=== PATIENT | female | born 1985 | race Caucasian/White ===

== ENCOUNTER 2017-10-27 08:52 | Emergency (ER) | payer BC ==
[2017-10-27] MEDS ORDERED: Sodium Chloride 0.9% 10 ML Syringe FLUSH PRN (09:38)
--- NOTE | 2017-10-27 09:39 | EDM.PDOC ---
ED HPI GENERAL MEDICAL PROBLEM - General Chief Complaint: Diabetic Complaint Stated Complaint: HBS CANT GET IT TO GO DOWN Time Seen by Provider: 10/27/17 09:35 Source of Information: Reports: Patient, RN Notes Reviewed - History of Present Illness INITIAL COMMENTS - FREE TEXT/NARRATIVE: 32-year-old female comes in with elevated blood sugar this morning. She states she apparently started running high during the night. She was aware that she was at high, upper 200s at around 4:00 this morning. She states that with her pump she has received about 10 extra units of insulin this morning. her readings are still running high at home. She also did eat a pumpkin bar about an hour ago because she felt she needed to get something "into her stomach". She states she has had this insulin pump for quite a while and has been diabetic for many years. No recent nausea or vomiting. States his sugars have been running fairly well recently until early this morning. No voiding symptomatology. No recent fever or chills. Chest Pain Score (Numeric/FACES): 5 - Related Data Allergies Allergy/AdvReac Type Severity Reaction Status Date / Time No Known Allergies Allergy Verified 10/27/17 09:02 Home Meds: Home Meds Amphetamine/Dextroamphetamine [Adderall XR] 15 mg PO DAILY 05/11/17 [History] Aspirin 81 mg PO DAILY 05/11/17 [History] Glucagon,Human Recombinant [Glucagen] 1 mg SUBCUT ASDIRECTED PRN 05/11/17 [ History] Insulin Aspart [NovoLOG] 90 units SUBCUT DAILY 05/11/17 [History] Losartan [Cozaar] 25 mg PO DAILY 05/11/17 [History] Rosuvastatin [Crestor] 5 mg PO DAILY 05/11/17 [History] Subcutaneous Insulin Pump [Minimed 670G] 1 device SUBCUT DAILY 05/11/17 [History ] Past Medical History Cardiovascular History: Reports: Hypertension Neurological History: Reports: Neuropathy, Diabetic Psychiatric History: Reports: Anxiety, Depression Endocrine/Metabolic History: Reports: Diabetes, Type I - Infectious Disease History Infectious Disease History: Reports: Chicken Pox Social & Family History - Tobacco Use Smoking Status *Q: Never Smoker - Caffeine Use Caffeine Use: Reports: Soda - Recreational Drug Use Recreational Drug Use: No ED ROS GENERAL - Review of Systems Review Of Systems: See Below Constitutional: Reports: No Symptoms HEENT: Denies: Vision Change Respiratory: Denies: Shortness of Breath Cardiovascular: Denies: Chest Pain GI/Abdominal: Denies: Abdominal Pain, Nausea, Vomiting Musculoskeletal: Denies: Neck Pain, Shoulder Pain Skin: Denies: Rash Neurological: Reports: Dizziness (Mild). Denies: Numbness, Tingling ED EXAM GENERAL NO PERIP PULSE - Physical Exam Exam: See Below General Appearance: Alert, No Apparent Distress Throat/Mouth: Normal Oropharynx, Other Head: No: Facial Swelling (Oral mucosa mildly dry) Neck: Supple Respiratory/Chest: No Respiratory Distress, Lungs Clear, Normal Breath Sounds Cardiovascular: Regular Rate, Rhythm GI/Abdominal: Soft Back Exam: No: CVA Tenderness (L), CVA Tenderness (R) Extremities: Normal Inspection. No: Pedal Edema, Leg Pain Neurological: Alert, Oriented, No Motor/Sensory Deficits Skin Exam: Warm, Dry, Normal Color Course - Vital Signs Last Recorded V/S: Last Vital Signs Temp 97.9 F 10/27/17 08:58 Pulse 117 H 10/27/17 08:58 Resp 15 10/27/17 08:58 BP 140/92 H 10/27/17 08:58 Pulse Ox 99 10/27/17 08:58 - Orders/Labs/Meds Orders: Active Orders 24 hr Category Date Time Status Peripheral IV Care [RC] . DIRECTED Care 10/27/17 09:39 Active Peripheral IV Insertion Adult [OM.PC] Stat Oth 10/27/17 09:38 Ordered Labs: Laboratory Tests 10/27/17 10/27/17 10/27/17 Range/Units 09:00 09:20 09:20 WBC 7.56 (3.98-10.04) K/mm3 RBC 4.29 (3.98-5.22) M/mm3 Hgb 12.8 (11.2-15.7) gm/L Hct 36.6 (34.1-44.9) % MCV 85.3 (79.4-94.8) fl MCH 29.8 (25.6-32.2) pg MCHC 35.0 (32.2-35.5) g/dl RDW Std Deviation 36.2 L (36.4-46.3) fL Plt Count 214 (182-369) K/mm3 MPV 10.8 (9.4-12.3) fl Neut % (Auto) 74.9 H (34.0-71.1) % Lymph % (Auto) 18.1 L (19.3-51.7) % [place] % (Auto) 5.8 (4.7-12.5) % Eos % (Auto) 0.3 L (0.7-5.8) Baso % (Auto) 0.5 (0.1-1.2) % Neut # (Auto) 5.66 (1.56-6.13) K/mm3 Lymph # (Auto) 1.37 (1.18-3.74) K/mm3 [place] # (Auto) 0.44 H (0.24-0.36) K/mm3 Eos # (Auto) 0.02 L (0.04-0.36) K/mm3 Baso # (Auto) 0.04 (0.01-0.08) K/mm3 Sodium 130 L (136-145) mEq/L Potassium 3.9 (3.5-5.1) mEq/L Chloride 99 (98-107) mEq/L Carbon Dioxide 16 L (21-32) mEq/L Anion Gap 18.9 H (5-15) BUN 20 H (7-18) mg/dL Creatinine 1.0 (0.55-1.02) mg/dL Est Cr Clr Drug Dosing 85.97 mL/min Estimated GFR (MDRD) > 60 (>60) mL/min BUN/Creatinine Ratio 20.0 H (14-18) Glucose 382 H (74-106) mg/dL POC Glucose 367 H (70-105) mg/dL Calcium 9.0 (8.5-10.1) mg/dL Total Bilirubin 1.2 H (0.2-1.0) mg/dL AST 23 (15-37) U/L ALT 40 (14-59) U/L Alkaline Phosphatase 73 (46-116) U/L Total Protein 7.2 (6.4-8.2) g/dl Albumin 4.0 (3.4-5.0) g/dl Globulin 3.2 gm/dL Albumin/Globulin Ratio 1.3 (1-2) Meds: Medications Discontinued Medications Generic Name Dose Route Start Last Admin Trade Name Freq PRN Reason Stop Dose Admin Sodium Chloride 1,000 mls @ 999 mls/hr 10/27/17 09:45 10/27/17 10:06 Normal Saline IV 999 mls/hr ONETIME CLARY Administration Insulin Human Regular 3 unit 10/27/17 09:46 10/27/17 10:05 Humulin R IVPUSH 10/27/17 09:47 3 unit ONETIME ONE Administration Protocol Sodium Chloride 10 ml 10/27/17 09:38 10/27/17 10:06 Saline Flush FLUSH 10 ml ASDIRECTED PRN Administration Keep Vein Open - Re-Assessments/Exams Free Text/Narrative Re-Assessment/Exam: 10/27/17 15:06 Initial blood sugar was 379. We did give 3 units of insulin IV, and 1 L normal saline bolus. She does feel much better, blood sugars come down to 38. Did offer giving another liter of fluid as her labs did show moderate dehydration but she feels that she can go home continue to manage her blood sugar and continue to rehydrate. Discharge instructions as documented. Departure - Departure Time of Disposition: 12:18 Disposition: Home, Self-Care 01 Condition: Fair Clinical Impression: Hyperglycemia, Dehydration - Discharge Information Instructions: Hyperglycemia, Dehydration, Adult, [id number] Referrals: Peter Billingsley MD [Primary Care Provider] - Forms: ED Department Discharge, ED Return to Work/School Form Additional Instructions: Continued to drink plenty of water to rehydrate and maintain hydration, you to work with your insulin pump to help get sure blood sugar back to normal, her flow of your I will hydrate intake today, rest, off work the remainder of today , return to work tomorrow as tolerated, take as needed, return to ED as needed if symptoms worsening in any way. - My Orders Last 24 Hours: My Active Orders 10/27/17 09:38 Peripheral IV Insertion Adult [OM.PC] Stat 10/27/17 09:39 Peripheral IV Care [RC] . DIRECTED - Assessment/Plan Last 24 Hours: My Active Orders 10/27/17 09:38 Peripheral IV Insertion Adult [OM.PC] Stat 10/27/17 09:39 Peripheral IV Care [RC] . DIRECTED
[2017-10-27] MEDS ORDERED: Sodium Chloride 0.9% 1,000 ML IV SCH (09:45)
[2017-10-27] MEDS ORDERED: Insulin Regular, Human 100 Units/ML 3 ML Vial IVPUSH ONE (09:46)
== END 2017-10-27 13:03 | disposition home or self-care (01) ==
LOC: JD.ED 08:52
DX: E10.65 Type 1 diabetes mellitus with hyperglycemia (principal); E86.0 Dehydration; E10.40 Type 1 diabetes mellitus with diabetic neuropathy, unspecified; Z79.82 Long term (current) use of aspirin; Z79.899 Other long term (current) drug therapy
CPT/HCPCS: 36415; 80053; 82962; 85025; 96361; 96374; 99285; J1815; J7040; J7050; 99284